=== PATIENT | female | born 1985 | race Caucasian/White ===

== ENCOUNTER 2020-01-31 11:28 | Outpatient (CLI) | payer OTHER, SELFPAY ==
--- NOTE | ~2020-01-31 | XR_ITS ---
XR hysterosalpingogram DATE: 01/31/2020 12:32 INDICATION: Infertility TECHNIQUE: Multiple spot images of the pelvis were obtained during hysterosalpingogram procedure perf ormed by Dr. Patrick Kang. 26.89 DAP 1.9 minutes fluoroscopy time COMPARISON: None FINDINGS: The uterine cavity appears normally shaped. The fallopian tubes are opacified and there is evidence of bilateral peritoneal spillage. IMPRESSION: Bilateral fallopian tube patency Reviewed, dictated and finalized at Location [facility]. Reviewed, dictated and finalized at location A.
== END 2020-01-31 11:29 | disposition home or self-care (01) ==
PROVIDERS: Visit Provider Obstetrics & Gynecology
DX: N97.9 Female infertility, unspecified (principal)
CPT/HCPCS: 58340; 74740; Q9966

== ENCOUNTER → 2020-11-12 11:41 | Outpatient (CLI) | payer OTHER, SELFPAY ==
--- NOTE | ~2020-11-12 | MMUS_ITS ---
EXAMINATION: MM diag angela implant LT w paty, US breast LT limited HISTORY: Left breast lump TECHNIQUE: ML, MLO and craniocaudal 3-D tomosynthesis images of the left breast were performed and sy nthetic 2-D images were generated. CAD analysis was submitted and interpreted. High resolution target ed 6:00 left breast 7 cm from nipple ultrasound examination was performed. COMPARISON: None BREAST PARENCHYMAL COMPOSITION: The breasts are almost entirely fatty. FINDINGS: MAMMOGRAPHIC FINDINGS: A deflated implant is noted. Posteriorly situated in the left breast. No suspicious mass or architectural distortion, malignant calcification, skin thickening or retractio n is detected. ULTRASOUND: Within the subcutaneous tissues of the left breast at the area of clinical complaint of lump at 6:00 7 cm from the nipple is a parallel circumscribed 2.5 x 0.34 x 1.7 cm hypoechoic lesion with tract to the skin surface, consistent with a large sebaceous cyst. IMPRESSION: 1. Benign findings; large subcutaneous sebaceous cyst at 6:00 7 cm from nipple at area of clinical co mplaint 2. No mammographic evidence of malignancy BI-RADS Category 2: Benign finding(s). Reviewed, dictated and finalized at location A. IMPRESSION: 1. Benign findings; large subcutaneous sebaceous cyst at 6:00 7 cm from nipple at area of clinical complaint 2. No mammographic evidence of malignancy BI-RADS Category 2: Benign finding(s).
== END ==
PROVIDERS: Visit Provider Obstetrics & Gynecology
DX: N60.02 Solitary cyst of left breast (principal)
CPT/HCPCS: 76642; 77061; 77065; G0279

== ENCOUNTER 2021-04-03 12:20 | Outpatient (CLI) | payer OTHER, SELFPAY ==
[2021-04-03 13:00] LABS: Basophils Absolute Auto 0.1 K/mm3 (0.0-0.1); Basophils Percent Auto 0.7 % (0.2-1.2); Eosinophils Absolute Auto 0.2 K/mm3 (0-0.3); Eosinophils Percent Auto 1.9 % (0-4.4); Hematocrit 50.3 % (37.0-47.0); Hemoglobin 16.7 g/dL (12.0-15.0); Immature Granulocyte Absolute 0.03 K/mm3 (0.00-0.031); Immature Granulocyte Percent A 0.3 % (0-0.5); Lymphocytes Absolute Auto 4.49 K/mm3 (0.9-3.2); Lymphocytes Percent Auto 37.9 % (18.3-44.2); Mean Corpuscular HGB Conc 33.2 g/dl (32-36); Mean Corpuscular Hemoglobin 29.6 pg (26-34); Mean Platelet Volume 10.8 fl (7.4-10.4); Monocytes Absolute Auto 0.7 K/mm3 (0.1-0.6); Monocytes Percent Auto 5.8 % (2.6-8.5); Neutrophils Absolute Auto 6.3 K/mm3 (1.3-6.7); Neutrophils Percent Auto 53.4 % (45.5-73.1); Platelet Count Result 413 k/mm3 (150-375); Red Blood Count 5.65 M/mm3 (4.2-5.4); Red Cell Distribution Width 13.5 % (11.5-14.5); White Blood Count 11.9 K/mm3 (4.5-10.0)
[2021-04-03 13:15] LABS: Alanine Aminotransferase 83 U/L (4-35); Albumin Level 5.6 g/dL (3.5-5.1); Alkaline Phosphatase 70 U/L (38-126); Anion Gap 13 mmol/L (8-16); Aspartate Amino Transferase 59 U/L (14-36); Bilirubin,Total 1.5 mg/dL (0.2-1.3); Blood Urea Nitrogen 13 mg/dL (7-17); Calcium 10.5 mg/dL (8.4-10.2); Carbon Dioxide 33 mmol/L (22-30); Chloride 96 mmol/L (98-107); Cholesterol 195 mg/dL (0-200); Estimated Glomerular Filt Rate > 60; Glucose 114 mg/dL (65-110); HDL Direct 38 mg/dL; Potassium 4.3 mmol/L (3.4-5.0); Sodium 142 mmol/L (137-145); Triglycerides 123 mg/dL (<150)
[2021-04-03 13:19] LABS: Hemoglobin A1C 7.8 % (<5.7)
[2021-04-03 13:27] LABS: LDL Cholesterol Direct 129 mg/dL
== END 2021-04-03 12:21 | disposition home or self-care (01) ==
DX: Z00.00 Encounter for general adult medical examination without abnormal findings (principal); R73.01 Impaired fasting glucose
CPT/HCPCS: 36415; 80053; 80061; 83036; 84443; 85025

== ENCOUNTER 2021-06-18 09:15 | Outpatient (CLI) | payer OTHER, SELFPAY ==
--- NOTE | ~2021-06-18 | US_ITS ---
EXAMINATION: US venous doppler [facility] EXAM DATE: 06/18/2021 10:39 INDICATION: M79.662 - Pain and swelling in left lower leg TECHNIQUE: Multiple grayscale, color flow and Doppler images of the left lower extremity deep venous system were obtained and reviewed. There is no prior study for comparison. FINDINGS: The left common femoral, femoral and profunda veins demonstrate normal color flow, respirat ory variation, augmentation and compressibility. Compressibility, color flow confirmed within the le ft popliteal, posterior tibial, peroneal, and greater saphenous veins. IMPRESSION: 1. No left lower extremity deep venous thrombosis. Reviewed, dictated and finalized at location A. L COUNSEL
== END 2021-06-18 09:16 | disposition home or self-care (01) ==
LOC: ANHIMG 09:20
PROVIDERS: Visit Provider Physician Assistant
DX: M79.662 Pain in left lower leg (principal)
CPT/HCPCS: 93971

== ENCOUNTER 2021-07-14 12:04 | Outpatient (CLI) | payer OTHER, SELFPAY ==
[2021-07-14 13:36] LABS: Hemoglobin A1C 5.6 % (<5.7)
== END 2021-07-14 12:05 | disposition home or self-care (01) ==
DX: E28.2 Polycystic ovarian syndrome (principal); Z31.41 Encounter for fertility testing
CPT/HCPCS: 36415; 83036; 83520

== ENCOUNTER 2021-08-13 12:10 | Outpatient (CLI) | payer OTHER, SELFPAY ==
[2021-08-16 06:14] LABS: Progesterone 13.5 ng/mL (***)
== END 2021-08-13 12:11 | disposition home or self-care (01) ==
DX: Z31.41 Encounter for fertility testing (principal)
CPT/HCPCS: 36415; 84144

== ENCOUNTER 2022-02-09 15:24 | Outpatient (CLI) | payer OTHER, SELFPAY ==
[2022-02-09 19:57] LABS: Anion Gap 12 mmol/L (8-16); Blood Urea Nitrogen 13 mg/dL (7-17); Calcium 9.4 mg/dL (8.4-10.2); Carbon Dioxide 30 mmol/L (22-30); Chloride 96 mmol/L (98-107); Estimated Glomerular Filt Rate > 60; Glucose 97 mg/dL (65-110); Magnesium 1.7 mg/dL (1.6-2.3); Potassium 3.7 mmol/L (3.4-5.0); Sodium 138 mmol/L (137-145)
== END 2022-02-09 15:25 | disposition home or self-care (01) ==
LOC: ANHGOSHLAB 15:26
PROVIDERS: Visit Provider Family Medicine
DX: R00.2 Palpitations (principal); I10 Essential (primary) hypertension
CPT/HCPCS: 36415; 80048; 83735

== ENCOUNTER 2022-02-18 08:25 | Outpatient (CLI) | payer OTHER, SELFPAY ==
--- NOTE | 2022-02-18 08:26 | ECHO_ITS ---
Patient Info Name: Anahi Wilson Age: 36 years : 1985 Gender: Female Ht: 65 in Wt: 230 lbs BSA: 2.24 m2 HR: 68 bpm BP: 127 / 97 mmHg Heart Rhythm: Sinus Rhythm Exam Date: 02/18/2022 9:20 AM Exam Location: [facility] Pulmonary Patient Status: Outpatient Admit Date: 02/18/2022 Staff Ordering Physician: Anahi Wilson DO Blade Aligner: Edis Maurer RDCS Attending Provider: Anahi Wilson DO Referring Physician: Katie HUTCHINSON; Exam Type: CA echo doppler color flow Study Info Indications R00.2 - Palpitations Complete two-dimensional, color flow and Doppler transthoracic echocardiogram is performed. Summary 1. Complete two-dimensional, color flow and Doppler transthoracic echocardiogram is performed. 2. Normal left ventricular size and thickness. Good contractility of all segments, ejection fraction 60-65%. Normal diastolic function. 3. No significant valve disease. 4. Unable to calculate right ventricular systolic pressure on this echo. 5. Normal sinus rhythm. Left Ventricle Left ventricular chamber dimension is normal. Left ventricular systolic function is normal, estimated at 60-65%. There is no increased left ventricular wall thickness. Left ventricular septal wall motion is normal. The left ventricular diastolic function is normal. Right Ventricle Right ventricular chamber dimension is normal. Right ventricular systolic function is normal. Left Atria Left atrial chamber dimension is normal. Right Atria Right atrial chamber dimension is normal. Aortic Valve The aortic valve is trileaflet. There is no aortic valve sclerosis. There is no aortic valve stenosis. There is no aortic valve regurgitation. Pulmonic Valve The pulmonic valve is normal. There is no pulmonic valve stenosis. There is no pulmonic regurgitation. Mitral Valve The mitral valve has normal leaflets. There is no mitral valve stenosis. There is no mitral valve regurgitation. Tricuspid Valve The tricuspid valve leaflets are normal. There is no significant tricuspid valve stenosis. There is trace tricuspid valve regurgitation. No pulmonary hypertension, estimated pulmonary arterial systolic pressure is Empty. Pericardium/Pleural The pericardium appears normal. There is no pericardial effusion. Inferior Vena Cava Not well visualized inferior vena cava with >50% collapse upon inspiration consistent with Empty right atrial pressure, Empty. Aorta The aortic root size at the sinus of Valsalva is normal. The prox ascending aorta size is normal. Left Ventricular Outflow Tract Name Value Normal LVOT 2D LVOT Diameter 2.0 cm LVOT Doppler LVOT Peak Gradient 6 mmHg LVOT Mean Gradient 4 mmHg LVOT VTI 23 cm LVOT VTI/AV VTI Ratio 0.9 LVOT Stroke Volume 75 ml LVOT CO 5.7 l/min LVOT CI 2.5 l/min/m2 Mitral Valve
== END 2022-02-18 08:26 | disposition home or self-care (01) ==
LOC: ANHCARD 08:26
PROVIDERS: Visit Provider Family Medicine
DX: R00.2 Palpitations (principal)
CPT/HCPCS: 93306

== ENCOUNTER 2022-04-27 12:21 | Outpatient (CLI) | payer OTHER, SELFPAY ==
--- NOTE | ~2022-04-27 | CT_ITS ---
EXAMINATION: CT abdomen pelvis w con INDICATION: Abdominal pain and diarrhea TECHNIQUE: Computed tomographic images of the abdomen and pelvis were obtained after the administrati on of 100 cc of Omnipaque 350 intravenous contrast. The dose-length product (DLP) was 1280.39 mGy-cm. Automated exposure control and iterative reconstruction technique were employed. COMPARISON: None available FINDINGS: Minimal dependent atelectasis is present in the lung bases. The heart size is normal. The l iver is diffusely low in attenuation when compared with the spleen, consistent with hepatic steatosis . There is focal fatty sparing near the gallbladder fossa. A stone is present in the nondistended gal lbladder. The spleen, pancreas, and adrenal glands are normal. The left kidney is unremarkable. There is a 6 mm cyst of the right kidney upper pole. There is mild periportal lymphadenopathy. Otherwise, no pathologically enlarged abdominal or pelvic lymph nodes are identified. The appendix is normal. Th ere is mild lumbar spondylosis. There is an approximately 3.9 x 3.1 cm cystic lesion of the right adn exa, probable cyst. IMPRESSION: 1. No CT correlate for the patient's symptoms. 2. 3.9 cm cystic lesion of the right adnexa, probable cyst. Recommend clinical correlation for right pelvic pain and consider further evaluation with pelvic ultrasound. 3. Diffuse hepatic steatosis. 4. Mild periportal lymphadenopathy, likely reactive. Reviewed, dictated and finalized at location B. K REPAIR LABORER IMPRESSION: 1. No CT correlate for the patient's symptoms. 2. 3.9 cm cystic lesion of the right adnexa, probable cyst. Recommend clinical correlation for right pelvic pain and consider further evaluation with pelvic u ltrasound. 3. Diffuse hepatic steatosis. 4. Mild periportal lymphadenopathy, likely reactive.
[2022-04-27 12:50] LABS: Estimated Glomerular Filt Rate > 60
== END 2022-04-27 12:22 | disposition home or self-care (01) ==
PROVIDERS: Visit Provider Family Medicine
DX: R10.84 Generalized abdominal pain (principal); R19.7 Diarrhea, unspecified; K76.0 Fatty (change of) liver, not elsewhere classified
CPT/HCPCS: 74177; Q9967

== ENCOUNTER 2022-07-17 10:56 | Outpatient (CLI) | payer OTHER, SELFPAY ==
[2022-07-21 18:30] LABS: H pylori, Urea Breath DETECTED (NOT DETECTED)
== END 2022-07-17 10:57 | disposition home or self-care (01) ==
LOC: ANHGOSHLAB 10:58
PROVIDERS: Visit Provider Nurse Practitioner Family
DX: K21.9 Gastro-esophageal reflux disease without esophagitis (principal); R10.9 Unspecified abdominal pain; R19.7 Diarrhea, unspecified
CPT/HCPCS: 83013

== ENCOUNTER → 2022-08-21 09:29 | Outpatient (CLI) | payer OTHER, SELFPAY ==
--- NOTE | ~2022-08-21 | US_ITS ---
EXAMINATION: US right upper quadrant DATE: 08/21/2022 09:46 INDICATION: Right upper quadrant abdominal pain. TECHNIQUE: Multiple grayscale and Doppler ultrasound images of the abdomen were obtained. COMPARISON: CT abdomen and pelvis 04/27/2022 FINDINGS: The visualized portion of the head of the pancreas is normal. There is diffuse hepatic stea tosis with focal sparing in the gallbladder fossa. There is normal flow in main portal vein. The gall bladder is normal in size and contains a gallstone. No gallbladder wall thickening. There was a posit haider sonographic Massey sign. The common duct is normal and measures 4 mm. IMPRESSION: 1. Gallstone and positive sonographic Massey sign, but no gallbladder distention or gallbladder wall thickening to suggest acute cholecystitis. 2. Diffuse hepatic steatosis. Reviewed, dictated and finalized at location A. E INSERTER IMPRESSION: 1. Gallstone and positive sonographic Massey sign, but no gallbladder distentio n or gallbladder wall thickening to suggest acute cholecystitis. 2. Diffuse hepatic steatosis.
== END ==
PROVIDERS: PCP Family Medicine; Visit Provider Family Medicine
DX: R10.11 Right upper quadrant pain (principal); K76.0 Fatty (change of) liver, not elsewhere classified; K80.20 Calculus of gallbladder without cholecystitis without obstruction
CPT/HCPCS: 76705

== ENCOUNTER → 2023-01-05 08:46 | Outpatient (CLI) | payer OTHER, SELFPAY ==
--- NOTE | ~2023-01-05 | US_ITS ---
Limited Abdominal Sonogram: Real-time sonographic imaging of the right upper quadrant was performed. Clinical History: Right upper quadrant pain Findings: The liver appears mildly echogenic, with no evidence of mass lesion or bile duct dilatatio n. Main portal vein demonstrates normal direction of flow. The gallbladder is well distended, and con tains an echogenic, 2.3 cm shadowing gallstone. No gallbladder wall thickening. The common bile duct measures 5 mm. The visualized pancreas, aorta, and IVC are unremarkable. Impression: Cholelithiasis. Diffuse fatty infiltration of liver. Reviewed, dictated and finalized at location . Impression: Cholelithiasis. Diffuse fatty infiltration of liver.
== END ==
PROVIDERS: PCP Family Medicine; Visit Provider Family Medicine
DX: R10.11 Right upper quadrant pain (principal); K80.20 Calculus of gallbladder without cholecystitis without obstruction; K76.0 Fatty (change of) liver, not elsewhere classified
CPT/HCPCS: 76705

== ENCOUNTER 2023-02-12 08:18 | Outpatient (CLI) | payer OTHER, SELFPAY ==
[2023-02-12 17:08] LABS: Hematocrit 47.8 % (37.0-47.0); Hemoglobin 15.1 g/dL (12.0-15.0); Mean Corpuscular HGB Conc 31.6 g/dl (32-36); Mean Corpuscular Hemoglobin 27.6 pg (26-34); Mean Corpuscular Volume 87.2 fl (80-100); Mean Platelet Volume 11.4 fl (7.4-10.4); Platelet Count Result 312 k/mm3 (150-375); Red Blood Count 5.48 M/mm3 (4.2-5.4); Red Cell Distribution Width 13.3 % (11.5-14.5); White Blood Count 10.6 K/mm3 (4.5-10.0)
[2023-02-12 17:20] LABS: Alanine Aminotransferase 77 U/L (6-35); Albumin Level 4.4 g/dL (3.5-5.1); Alkaline Phosphatase 66 U/L (38-126); Anion Gap 9 mmol/L (8-16); Aspartate Amino Transferase 57 U/L (14-36); Bilirubin,Total 0.8 mg/dL (0.2-1.3); Blood Urea Nitrogen 14 mg/dL (7-17); Calcium 9.3 mg/dL (8.4-10.2); Carbon Dioxide 31 mmol/L (22-30); Chloride 99 mmol/L (98-107); Cholesterol 209 mg/dL (0-200); Estimated Glomerular Filt Rate > 60; Glucose 113 mg/dL (65-110); HDL Direct 34 mg/dL; Potassium 4.1 mmol/L (3.4-5.0); Sodium 139 mmol/L (137-145); Triglycerides 186 mg/dL (<150)
[2023-02-12 17:31] LABS: LDL Cholesterol Direct 129 mg/dL
[2023-02-12 17:39] LABS: Hemoglobin A1C 5.8 % (<5.7)
[2023-02-16 14:00] LABS: Vitamin D 1,25 (OH)2 Total 33 pg/mL (18-72); Vitamin D2 1,25 (OH)2 <8 pg/mL; Vitamin D3 1,25 (OH)2 33 pg/mL
== END 2023-02-12 08:19 | disposition home or self-care (01) ==
LOC: ANHGOSHLAB 08:20
PROVIDERS: PCP Family Medicine; Visit Provider Internal Medicine Gastroenterology
DX: E55.9 Vitamin D deficiency, unspecified (principal); E66.9 Obesity, unspecified; I10 Essential (primary) hypertension; R73.03 Prediabetes; R74.8 Abnormal levels of other serum enzymes; Z79.899 Other long term (current) drug therapy; R10.11 Right upper quadrant pain
CPT/HCPCS: 36415; 80053; 80061; 82652; 83036; 84443; 85027

== ENCOUNTER 2023-03-18 08:55 | Outpatient (CLI) | payer OTHER, SELFPAY ==
[2023-03-18 10:27] LABS: Alanine Aminotransferase 78 U/L (6-35); Albumin Level 4.4 g/dL (3.5-5.1); Alkaline Phosphatase 62 U/L (38-126); Amylase 99 U/L (30-110); Aspartate Amino Transferase 66 U/L (14-36); Bilirubin,Total 1.1 mg/dL (0.2-1.3); Lipase 281 U/L (23-300)
== END 2023-03-18 08:56 | disposition home or self-care (01) ==
LOC: ANHGOSHLAB 08:57
PROVIDERS: Visit Provider Surgery
DX: K80.20 Calculus of gallbladder without cholecystitis without obstruction (principal)
CPT/HCPCS: 36415; 80076; 82150; 83690; 86850; 86900; 86901

== ENCOUNTER 2023-03-24 01:13 | Day surgery (SDC) | payer OTHER, SELFPAY ==
[2023-03-15 16:55] VITALS: BMI 41.1
--- NOTE | 2023-03-15 16:56 | PC.NURSE ---
Report to the Outpatient Waiting Room, entrance under the green pavilion located off [facility], at time _1000_ on date _[id number]_. Planned Procedure Time: _1200_. Time changes happen often and if your time is changed the preop area will call you the afternoon before. - You and your visitor will be asked to self-screen and do not enter if you have any COVID symptoms. - A mask is optional within the hospital at this time. Patients may have clear liquids (water, carbonated beverages, clear teas, apple juice) until 3 hours prior to surgery with a maximum of 20 ounces. - No food from midnight until time of surgery Take the following medications with a SIP of water the morning of surgery: ____None DO NOT STOP ANY OF YOUR OTHER PRESCRIPTION MEDICATIONS PRIOR TO SURGERY ?EXCEPT THE FOLLOWING Medications to discontinue per physician ____None Date to take last dose Please no make-up, nail hungarian, hairspray, perfume, deodorant, or body powder the day of surgery. No jewelry (including any body piercings) or valuables the day of surgery, leave them at home. Please take a shower or bath the morning of, surgery with Hebiclense an antibacterial soap. Wear comfortable, loose fitting clothing. - Jewelry must be removed prior to entering the operating room. Rings and piercings that are not removed may be cut off. - The hospital will not accept responsibility for valuables. - Please leave all valuables, including medications, at home the day of surgery. If you are going home after surgery, a licensed rolloff driver must drive you home. - NO public transportation without another adult if you receive anesthesia. - We recommend that an adult stay with you for 24 hours following discharge. - We also recommend that you do not drive, make important decision, drink alcoholic beverages, or take any drugs that were not prescribed by your health care provider for at least 24 hours after your discharge time. Follow any additional instructions given to you from your surgeon. If you or anyone in your household have experienced Covid symptoms in the past week, please notify your surgeon or the nurse liaison at the phone number below for possible testing. Telephone instructions given to _Patient__and asked if any additional questions and then verbalized understanding. Patient advised to call surgeon office or pre surgery nurse liaison [phone] if any additional questions.
[2023-03-24] VITALS (9 sets, daily range): BP systolic 98–152; BP diastolic 60–94; PULSE 80–94; RESP 12–22; TEMP 36.1–36.5; O2SAT 95–99
[2023-03-24] MEDS: LACTATED RINGERS 1,000 ML 30 ML IV CONT ×2 (10:45→13:20)
[2023-03-24] MEDS: ACETAMINOPHEN 500 MG TABLET 1000 MG PO (10:45)
[2023-03-24] MEDS: KETOROLAC 15 MG/ML VIAL (*BKC) IV PUSH (10:45)
[2023-03-24 10:56] LABS: Glucose Point of Care 133 mg/dl (65-105)
--- NOTE | 2023-03-24 11:28 | WPDANESEPPF ---
Anes - Initial Pre Proc Eval Procedure: Operation Date: 03/24/23 12:00 Proposed Procedures p Laparoscopic Cholecystectomy - Guadalupe Joya MD Date/Time: 03/24/23 11:28 Surgeon: Guadalupe Joya MD Pre Op Diagnosis: chronic cholecystitis with stones Patient Data Age: 37 Gender: F Height: 1.66 m Weight: 117.2 kg Last Vital Signs Temp 97.0 F L 03/24/23 10:14 Pulse 94 03/24/23 10:14 Resp 18 03/24/23 10:14 BP 141/91 H 03/24/23 10:14 Pulse Ox 98 03/24/23 10:14 O2 Del Method Room Air 03/24/23 10:14 Allergies Allergy/AdvReac Type Severity Reaction Status Date / Time cephalexin [From Keflex] Allergy Mild Hives Verified 03/24/23 10:19 sulfamethoxazole Allergy Mild Rash Verified 03/24/23 10:19 [From Bactrim] trimethoprim [From Bactrim] Allergy Mild Rash Verified 03/24/23 10:19 ciprofloxacin [From Cipro] AdvReac Intermediate Other Verified 03/24/23 10:19 Home Medications Medication Instructions Recorded Confirmed Type hydrochlorothiazide 25 mg tablet 25 mg PO DAILY #30 tabs 10/27/22 03/24/23 Rx clindamycin phosphate 1 % topical 1 applic topical BID #60 grams 01/04/23 03/24/23 Rx gel metformin 500 mg tablet,extended 1,000 mg PO BID #120 tabs 01/18/23 03/24/23 Rx release 24hr omeprazole 20 mg capsule,delayed 20 mg PO BID 03/15/23 03/24/23 History release alprazolam 0.25 mg tablet 0.25 mg PO BID PRN anxiety #4 tabs 03/17/23 03/24/23 Rx ketorolac 10 mg tablet 10 mg PO Q6H PRN pain 7 days #28 03/22/23 03/24/23 Rx tabs hydrocodone 5 mg-acetaminophen 325 1 tablet PO PRN PRN Pain 03/24/23 03/24/23 History mg tablet metoprolol succinate 100 mg 175 mg PO HS 03/24/23 03/24/23 History tablet,extended release 24 hr Laboratory Tests 03/24/23 10:53 POC Capillary Glucose 133 H mg/dl (65-105) Patient hx anesthesia problems: none Family hx anesthesia problems: none Results Review: All pre-operative results and documents have been reviewed as part of the pre-operative evaluation. COUNTS INCLUDE 234 BEDS AT THE [facility] Past Medical History Medical History Cholelithiasis Elevated liver enzymes Helicobacter pylori (H. pylori) infection Social History Social History Smoking status: Never smoker Alcohol intake: never Substance use: never Substance use type: does not use Living arrangements: with family Spiritual care concerns: No Anes - Eval Final PreProcedure Day of Procedure 03/24/23 11:28 Patient weight: morbidly obese Heart: regular rate and rhythm Lungs: clear to auscultation Airway: Mallampati scale class II Neurological: alert and oriented Last oral intake: >/= 8 hours ASA classification: III Emergent: no Anesthetic plan: proceed Anesthesia type and monitoring: general ETT and standard monitoring Results Review: All pre-operative results and documents have been reviewed as part of the pre-operative evaluation. Informed Consent: The patient's anesthetic plan and its attendant risks and benefits were discussed with the patient/family/POA. Questions were solicited and answers provided to the satisfaction of the patient/family/POA.
[2023-03-24] MEDS: CLINDAMYCIN 900 MG/D5W 50 ML 900 MG/50 ML PIGGYBACK 50 MG IVPB (11:47)
--- NOTE | 2023-03-24 11:48 | PM.IMHP ---
H&P: HPI History of Present Illness Date/Time: 03/24/23 11:48 Chief Complaint: cholecystitis, cholelithiasis Narrative: Anahi is a 37 y/o female who presents to the office for evaluation of her gallbladder. She reports that her symptoms include RUQ tenderness and acid reflux but denies any diarrhea or bloating. She was also diagnosed with H Pylori recently and saw GI yesterday that have recommended treatment for this. She had abdomen US that showed chronic cholecystitis, cholelithiasis. Review of Systems Review of Systems: All systems reviewed & are unremarkable except as noted in HPI and below PMFSH Past Medical History Medical History Cholelithiasis Elevated liver enzymes Helicobacter pylori (H. pylori) infection Social History Social History Smoking status: Never smoker Alcohol intake: never Substance use: never Substance use type: does not use Living arrangements: with family Spiritual care concerns: No Meds Home Medications and Allergies Home Medications Medication Instructions Recorded Confirmed Type hydrochlorothiazide 25 mg tablet 25 mg PO DAILY #30 tabs 10/27/22 03/24/23 Rx clindamycin phosphate 1 % topical 1 applic topical BID #60 grams 01/04/23 03/24/23 Rx gel metformin 500 mg tablet,extended 1,000 mg PO BID #120 tabs 01/18/23 03/24/23 Rx release 24hr omeprazole 20 mg capsule,delayed 20 mg PO BID 03/15/23 03/24/23 History release alprazolam 0.25 mg tablet 0.25 mg PO BID PRN anxiety #4 tabs 03/17/23 03/24/23 Rx ketorolac 10 mg tablet 10 mg PO Q6H PRN pain 7 days #28 03/22/23 03/24/23 Rx tabs hydrocodone 5 mg-acetaminophen 325 1 tablet PO PRN PRN Pain 03/24/23 03/24/23 History mg tablet metoprolol succinate 100 mg 175 mg PO HS 03/24/23 03/24/23 History tablet,extended release 24 hr Allergies Allergy/AdvReac Type Severity Reaction Status Date / Time cephalexin [From Keflex] Allergy Mild Hives Verified 03/24/23 10:19 sulfamethoxazole Allergy Mild Rash Verified 03/24/23 10:19 [From Bactrim] trimethoprim [From Bactrim] Allergy Mild Rash Verified 03/24/23 10:19 ciprofloxacin [From Cipro] AdvReac Intermediate Other Verified 03/24/23 10:19 Vital Signs Vital Signs - 24 hr 03/24/23 10:14 Temperature 36.1 C L Pulse Rate 94 Respiratory Rate 18 Blood Pressure 141/91 H Pulse Oximetry 98 Oxygen Delivery Room Air Exam Const: General: cooperative, comfortable and no acute distress Resp: Auscultation: clear to auscultation bilaterally Cardio: Rate: regular rate Rhythm: regular rhythm GI: Inspection: normal to inspection and obesity GI Palp: Yes abdominal tenderness, Yes Soft to palpation, Yes Tenderness to palpation present (GI), No Guarding due to palpation present (GI) and No Rigid due to palpation Assessment and Plan Assessment and plan (1) Chronic cholecystitis with calculus: Code(s): K80.10 - Calculus of gallbladder with chronic cholecystitis without obstruction Status: Acute Assessment and Plan: will setup for cholecystectomy
--- NOTE | 2023-03-24 11:51 | WPDHPUPDATE1 ---
History and Physical Update Update Date/Time: 03/24/23 11:51 History and Physical has been reviewed, including an updated exam of the patient. There are NO changes in the patient's condition. Risks, benefits, and alternatives have been discussed and questions answered. Patient agrees to proceed with procedure.
[2023-03-24] MEDS: BUPIVACAINE/EPINEPHRINE 0.5% 50 ML VIAL 30 ML INFILTRATE (12:07)
--- NOTE | 2023-03-24 13:12 | W.PM.PROC2 ---
Procedure Note - Detailed Date of Procedure 03/24/23 Pre-op Diagnosis chronic cholecystitis with cholelithiasis Post-op Diagnosis Same Procedure Performed Laparoscopic cholecystectomy Surgeon Guadalupe Joya MD Anesthesia General Indications 37-year-old female presented to the office complaining of postprandial right upper quadrant abdominal pain associated with nausea and vomiting. Workup including imaging significant for cholecystitis, cholelithiasis. Findings Cholecystitis with cholelithiasis Description of Procedure The patient was taken to the operating room placed in the supine position. After adequate induction of general anesthesia, the patient was prepped and draped in normal sterile fashion. A time-out was then performed to verify the patient's identity as well as the procedure being performed. I then made a 5 mm incision in the infraumbilical region. Through this, a Veress needle was placed into the peritoneal cavity and CO2 gas was then insufflated. After adequate pneumoperitoneum was achieved, the Veress needle was removed and a 5 mm optiview trocar was placed through this incision under direct visualization. I then placed the laparoscope through this trocar site and under direct visualization placed a further 12 mm subxiphoid port as well as 2 additional 5 mm ports in the right upper abdomen. The gallbladder was then identified and was noted to be moderately inflamed, distended, and full of gallstones. Of note, the liver was noted to have changes consistent with hepatic steatosis, Muñiz. I was able to place a grasper at the dome of the gallbladder and this was retracted anterior and cephalad up over the liver. A 2nd retractor was then placed at the infundibulum and retracted laterally, this allowed visualization of the triangle of Calot. I then was able to visualize the cystic duct in its entirety from its proximal insertion into the gallbladder, to its distal junction with the common hepatic/common bile duct junction. At this point, I carefully skeletonized the proximal cystic duct with the [place] dissector. I then clipped and transected the proximal cystic duct. Next I visualized the cystic artery. Again the artery was skeletonized, clipped, and transected. I then used the Bovie cautery to take down the peritoneal attachments of the gallbladder off the liver bed. Once the gallbladder specimen was completely detached, an endo-pouch was placed through the 12 mm port site. I then placed the gallbladder specimen into the Endo pouch and removed the endo-pouch from the 12 mm port site. Of note, I did have to slightly enlarge the incision to allow extraction of the gallbladder. The specimen will now be sent to pathology for further review. I then copiously irrigated the right upper quadrant. Hemostasis was noted in the liver bed, the clips were noted to be in good position on both the cystic duct stump and the cystic artery stump. No other pathology was noted in the right upper quadrant. I then moved the laparoscope to the subxiphoid port. No iatrogenic injury or other pathology was noted in the lower abdomen. I then closed the 12 mm trocar site under direct visualization using the Uriel cone and 0 Vicryl suture. At this point, the abdomen was desufflated and all ports removed. All port sites were then closed with 4.O Monocryl subcuticular sutures. Dermabond was placed on each incision. The patient tolerated the procedure well, was extubated in the operating room postoperative and will be transferred to the recovery room in stable condition Estimated Blood Loss 5 Drains No Packing No Pathology Yes Complications No immediate complications Condition Stable Disposition PACU [facility] Billing Surgery - Charge Forward: Surgery Billing
[2023-03-24 13:30] LABS: Glucose Point of Care 115 mg/dl (65-105)
[2023-03-24] MEDS: ONDANSETRON INJ 4 MG/2 ML VIAL IV PUSH (13:54)
[2023-03-24] MEDS: diphenhydrAMINE HCl INJ 50 MG/ML VIAL 25 MG IV PUSH (15:11)
[2023-03-24] MEDS: SCOPOLAMINE 1.5 MG PATCH TRANSDERM (15:11)
== END 2023-03-24 15:40 | disposition home or self-care (01) ==
PROVIDERS: Visit Provider Surgery
PROC: 0FT44ZZ Resection of Gallbladder, Percutaneous Endoscopic Approach (ICD-10-PCS; CPT 47562; principal; 2023-03-24 12:00)
DX: K80.10 Calculus of gallbladder with chronic cholecystitis without obstruction (principal); Z79.84 Long term (current) use of oral hypoglycemic drugs; E66.01 Morbid (severe) obesity due to excess calories; Z68.41 Body mass index [BMI] 40.0-44.9, adult
CPT/HCPCS: 47562; 82948; 88304; A9270; J1100; J1200; J1885; J2250; J2405; J2704; J3010; J7030; J7120

== ENCOUNTER → 2023-04-13 10:40 | Outpatient (CLI) | payer OTHER, SELFPAY ==
--- NOTE | ~2023-04-13 | US_ITS ---
US right upper quadrant INDICATION: Right upper quadrant pain and nausea PROCEDURE: Realtime right upper abdominal ultrasound. COMPARISON: No prior studies for comparison. FINDINGS: The pancreas is normal without focal mass or pancreatic ductal dilation. Echotexture, cons istent with fatty infiltration. Liver is enlarged. There is normal directional flow in the portal ve in. Gallbladder is surgically absent. Common bile duct measures 8 mm. No sonographic Massey's sign. IMPRESSION: 1: Hepatic steatosis. Hepatomegaly. 2: Status post cholecystectomy with expected prominence of the bile ducts. Reviewed, dictated and finalized at location L.
== END ==
PROVIDERS: PCP Family Medicine; Visit Provider Family Medicine
DX: R10.11 Right upper quadrant pain (principal); Z90.49 Acquired absence of other specified parts of digestive tract; K76.0 Fatty (change of) liver, not elsewhere classified
CPT/HCPCS: 76705

== ENCOUNTER 2023-11-10 09:14 | Outpatient (CLI) | payer OTHER, SELFPAY ==
[2023-11-10 10:21] LABS: Hematocrit 51.1 % (37.0-47.0); Hemoglobin 16.4 g/dL (12.0-15.0); Mean Corpuscular HGB Conc 32.1 g/dl (32-36); Mean Corpuscular Hemoglobin 27.4 pg (26-34); Mean Corpuscular Volume 85.3 fl (80-100); Mean Platelet Volume 11.5 fl (7.4-10.4); Platelet Count Result 423 k/mm3 (150-375); Red Blood Count 5.99 M/mm3 (4.2-5.4); Red Cell Distribution Width 14.1 % (11.5-14.5); White Blood Count 11.2 K/mm3 (4.5-10.0)
[2023-11-10 10:37] LABS: Alanine Aminotransferase 52 U/L (6-35); Alkaline Phosphatase 73 U/L (38-126); Anion Gap 8 mmol/L (4-12); Aspartate Amino Transferase 38 U/L (14-36); Bilirubin,Total 1.2 mg/dL (0.2-1.3); Blood Urea Nitrogen 14 mg/dL (7-17); Calcium 9.8 mg/dL (8.4-10.2); Carbon Dioxide 31 mmol/L (22-30); Chloride 100 mmol/L (98-107); Cholesterol 148 mg/dL (0-200); Estimated Glomerular Filt Rate > 60; Glucose 97 mg/dL (65-110); HDL Direct 34 mg/dL; Potassium 3.6 mmol/L (3.4-5.0); Sodium 139 mmol/L (137-145); Triglycerides 122 mg/dL (<150)
[2023-11-10 10:48] LABS: LDL Cholesterol Direct 93 mg/dL
[2023-11-10 11:05] LABS: Hemoglobin A1C 5.8 % (<5.7)
== END 2023-11-10 09:15 | disposition home or self-care (01) ==
LOC: ANHLAB 09:16
PROVIDERS: PCP Family Medicine; Visit Provider Family Medicine
DX: E78.5 Hyperlipidemia, unspecified (principal); E11.9 Type 2 diabetes mellitus without complications; Z82.49 Family history of ischemic heart disease and other diseases of the circulatory system; I10 Essential (primary) hypertension; E55.9 Vitamin D deficiency, unspecified
CPT/HCPCS: 36415; 80053; 80061; 83036; 84443; 85027

== ENCOUNTER 2024-03-21 12:13 | Outpatient (CLI) | payer OTHER, SELFPAY ==
[2024-03-21 12:58] LABS: Basophils Absolute Auto 0.1 K/mm3 (0.0-0.1); Basophils Percent Auto 0.5 % (0.2-1.2); Eosinophils Absolute Auto 0.2 K/mm3 (0-0.3); Eosinophils Percent Auto 1.4 % (0-4.4); Hemoglobin 15.2 g/dL (12.0-15.0); Immature Granulocyte Absolute 0.04 K/mm3 (0.00-0.031); Immature Granulocyte Percent A 0.3 % (0-0.5); Lymphocytes Absolute Auto 3.24 K/mm3 (0.9-3.2); Lymphocytes Percent Auto 25.6 % (18.3-44.2); Mean Corpuscular HGB Conc 33.8 g/dl (32-36); Mean Corpuscular Hemoglobin 29.2 pg (26-34); Mean Corpuscular Volume 86.4 fl (80-100); Mean Platelet Volume 10.6 fl (7.4-10.4); Monocytes Absolute Auto 0.9 K/mm3 (0.1-0.6); Neutrophils Absolute Auto 8.3 K/mm3 (1.3-6.7); Neutrophils Percent Auto 65.2 % (45.5-73.1); Platelet Count Result 425 k/mm3 (150-375); Red Blood Count 5.21 M/mm3 (4.2-5.4); Red Cell Distribution Width 14.7 % (11.5-14.5); White Blood Count 12.7 K/mm3 (4.5-10.0)
[2024-03-21 13:07] LABS: Hemoglobin A1C 5.3 % (<5.7)
[2024-03-21 13:09] LABS: Alanine Aminotransferase 32 U/L (6-35); Albumin Level 4.5 g/dL (3.5-5.1); Alkaline Phosphatase 69 U/L (38-126); Anion Gap 8 mmol/L (4-12); Aspartate Amino Transferase 29 U/L (14-36); Bilirubin,Total 1.2 mg/dL (0.2-1.3); Blood Urea Nitrogen 15 mg/dL (7-17); Calcium 9.5 mg/dL (8.4-10.2); Carbon Dioxide 30 mmol/L (22-30); Chloride 98 mmol/L (98-107); Cholesterol 144 mg/dL (0-200); Estimated Glomerular Filt Rate > 60; Glucose 80 mg/dL (65-110); HDL Direct 33 mg/dL; Potassium 3.7 mmol/L (3.4-5.0); Sodium 136 mmol/L (137-145); Triglycerides 97 mg/dL (<150)
[2024-03-21 13:20] LABS: LDL Cholesterol Direct 82 mg/dL
[2024-03-29 17:38] LABS: Vitamin D 1,25 (OH)2 Total 40 pg/mL (18-72); Vitamin D2 1,25 (OH)2 <8 pg/mL; Vitamin D3 1,25 (OH)2 40 pg/mL
== END 2024-03-21 12:14 | disposition home or self-care (01) ==
PROVIDERS: PCP Family Medicine; Visit Provider Family Medicine
DX: E78.5 Hyperlipidemia, unspecified (principal); E55.9 Vitamin D deficiency, unspecified; E66.9 Obesity, unspecified; I10 Essential (primary) hypertension; R73.03 Prediabetes; R74.8 Abnormal levels of other serum enzymes; Z79.899 Other long term (current) drug therapy
CPT/HCPCS: 36415; 80053; 80061; 82652; 83036; 84443; 85025

== ENCOUNTER 2024-04-07 23:01 | Emergency (ER) | payer OTHER, SELFPAY ==
--- NOTE | ~2024-04-07 | CT_ITS ---
EXAMINATION: CT cervical spine w con DATE: 04/08/2024 00:53 INDICATION: New onset of tingling in the lower extremity. History of multiple sclerosis. TECHNIQUE: Computed tomography (CT) of the cervical spine was performed with 200 cc of MultiHance adm inistered intravenously. intravenous contrast. The dose-length product was mGy-cm. COMPARISON: None FINDINGS: Straightening of cervical lordosis. Vertebral body heights are maintained. Mild disc narrow ing at C5-6. No evidence for perched facet. Odontoid process is normal. No paraspinal soft tissue abn ormality. Lung apices are normal. No significant spinal stenosis. If there is concern for demyelinati ng disease, further evaluation with MRI is recommended. No abnormal enhancement is seen. There is mil d levocurvature of the cervical spine. Mild multilevel uncinate hypertrophy. IMPRESSION: 1. No acute abnormality of the cervical spine. Reviewed, dictated and finalized at location B.
--- NOTE | ~2024-04-07 | CT_ITS ---
EXAMINATION: CT thoracic lumbar w con DATE: 04/08/2024 00:53 INDICATION: History of MS. Onset of tingling in the lower extremities. TECHNIQUE: Computed tomography (CT) of the thoracic and lumbar was performed without intravenous cont rast. The dose-length product was 1946.52 mGy-cm. Automated exposure control and iterative reconstruc tion technique were employed. COMPARISON: None FINDINGS: Thoracic spine: There is dependent atelectasis. There is mild lower thoracic spondylosis. Vertebral b matt heights are maintained. Normal thoracic alignment. No significant spinal stenosis. No fracture or traumatic malalignment. Lumbar spine: Normal lumbar alignment. No fracture, subluxation or dislocation. Mild levocurvature of the lumbar sp ine. IMPRESSION: 1. No acute abnormality of the thoracic or lumbar spine. Reviewed, dictated and finalized at location B.
[2024-04-07 23:08] VITALS: BP 119/80; PULSE 97; RESP 14; TEMP 36.8; O2SAT 100
--- NOTE | 2024-04-07 23:36 | ECG_ITS ---
Test Date: 2024-04-07 23:33:02 Measurements Intervals [place] Rate: 87 P: 28 NE: 180 QRS: 28 QRSD: 109 T: 36 QT: 365 QTc: 441 Interpretive Statements SINUS RHYTHM NORMAL ELECTROCARDIOGRAM No previous ECG available for comparison Electronically Signed On 04-08-2024 09:49:49 CDT by Yves Mercedes M.D.
--- NOTE | 2024-04-08 00:01 | ED.GENADULT ---
HPI - General Adult General Chief complaint: Unspecified Stated complaint: When I tilt my head down; bottom half goes numb Time Seen by Provider: 04/07/24 23:17 History of Present Illness HPI narrative: Patient is a 38-year-old female who presents to the ER with some numbness and tingling in her bilateral hips and lower extremities. She reports she has history of MS, but has not had a flare up in many years. Patient reports in 2019 she had a MRI that indicated she had a new lesion, but patient's main symptoms have been related to optic neuritis. She reports she slept weird approximately 1 week ago and woke up with some neck discomfort. Patient reports she started experiencing more neck pain 3 days ago and today she noted when she flexed her head forward her bilateral lower extremities felt like ?buzzing bees from my hips all the way down my legs. She reports she was prescribed a Medrol Dosepak today but has not started it yet. Patient denies chest pain, shortness of breath, incontinence, one-sided numbness/tingling/weakness. Related Data Allergies Allergy/AdvReac Type Severity Reaction Status Date / Time cephalexin [From Keflex] Allergy Hives Verified 04/07/24 23:15 ciprofloxacin AdvReac Diarrhea Verified 04/07/24 23:15 sulfamethoxazole AdvReac Itching Verified 04/07/24 23:15 [From Bactrim] trimethoprim [From Bactrim] AdvReac Itching Verified 04/07/24 23:15 Review of Systems Review of Systems: All systems reviewed & are unremarkable except as noted in HPI and below Exam Narrative: GENERAL: Well appearing, well-nourished, non-toxic, in no acute distress. HEAD: Normocephalic, atraumatic. NECK: Supple. No adenopathy, no masses. RESPIRATORY: Airway patent, respirations nonlabored. Clear to auscultation bilaterally, no rales, rhonchi, wheezing. CARDIOVASCULAR: Regular rate and rhythm without murmurs, rubs, or gallops. Peripheral pulses 2+ and equal bilaterally. ABDOMINAL: Soft, nontender, nondistended, no hepatosplenomegaly. Normoactive BS. MUSCULOSKELETAL: Moves all extremities. Strength/ROM intact without gross deformities. SKIN: Warm, dry, normal color. No rashes. NEURO: A&O X3. Speech clear. Cranial nerves II-XII grossly intact. No ataxic movements. PSYCHIATRIC: Appropriate mood and affect. Normal interaction. Course Vital Signs Vital signs: Vital Signs Temperature 36.8 C 04/07/24 23:08 Pulse Rate 97 04/07/24 23:08 Respiratory Rate 14 04/07/24 23:08 Blood Pressure 119/80 04/07/24 23:08 Pulse Oximetry 100 04/07/24 23:08 Oxygen Delivery Room Air 04/07/24 23:08 Temperature 36.8 C 04/07/24 23:08 Pulse Rate 87 04/08/24 00:17 Respiratory Rate 20 04/08/24 00:17 Blood Pressure 113/83 04/08/24 00:17 Pulse Oximetry 100 04/08/24 00:17 Oxygen Delivery Room Air 04/07/24 23:08 Medical Decision Making MDM Narrative Medical decision making narrative: Patient is a 38-year-old female who presents to the ER with some numbness and tingling in her bilateral hips and lower extremities. She reports she has history of MS, but has not had a flare up in many years. Patient reports in 2019 she had a MRI that indicated she had a new lesion, but patient's main symptoms have been related to optic neuritis. She reports she slept weird approximately 1 week ago and woke up with some neck discomfort. Patient reports she started experiencing more neck pain 3 days ago and today she noted when she flexed her head forward her bilateral lower extremities felt like ?buzzing bees from my hips all the way down my legs. She reports she was prescribed a Medrol Dosepak today but has not started it yet. Patient denies chest pain, shortness of breath, incontinence, one-sided numbness/tingling/weakness. Patient's physical examination is unremarkable. Her neuro examination was unremarkable and all cranial nerves intact. Patient's CBC indicated white blood cell count of 11.1, but patient
[2024-04-08] MEDS: methylPREDNISolone SOD SUCC 125 MG VIAL IV PUSH (00:07)
[2024-04-08] MEDS: SODIUM CHLORIDE 0.9% IV 1,000 ML 999 ML IV CONT (00:07)
[2024-04-08 00:12] LABS: Basophils Absolute Auto 0.1 K/mm3 (0.0-0.1); Basophils Percent Auto 0.6 % (0.2-1.2); Eosinophils Absolute Auto 0.2 K/mm3 (0-0.3); Eosinophils Percent Auto 1.7 % (0-4.4); Hematocrit 43.7 % (37.0-47.0); Hemoglobin 14.7 g/dL (12.0-15.0); Immature Granulocyte Absolute 0.03 K/mm3 (0.00-0.031); Immature Granulocyte Percent A 0.3 % (0-0.5); Lymphocytes Absolute Auto 3.81 K/mm3 (0.9-3.2); Lymphocytes Percent Auto 34.3 % (18.3-44.2); Mean Corpuscular HGB Conc 33.6 g/dl (32-36); Mean Corpuscular Hemoglobin 29.2 pg (26-34); Mean Corpuscular Volume 86.7 fl (80-100); Mean Platelet Volume 10.8 fl (7.4-10.4); Monocytes Absolute Auto 0.7 K/mm3 (0.1-0.6); Monocytes Percent Auto 6.6 % (2.6-8.5); Neutrophils Absolute Auto 6.3 K/mm3 (1.3-6.7); Neutrophils Percent Auto 56.5 % (45.5-73.1); Platelet Count Result 449 k/mm3 (150-375); Red Blood Count 5.04 M/mm3 (4.2-5.4); Red Cell Distribution Width 14.4 % (11.5-14.5); White Blood Count 11.1 K/mm3 (4.5-10.0)
[2024-04-08 00:17] VITALS: BP 113/83; PULSE 87; RESP 20; O2SAT 100
[2024-04-08 00:27] LABS: Alanine Aminotransferase 31 U/L (6-35); Albumin Level 4.3 g/dL (3.5-5.1); Alkaline Phosphatase 62 U/L (38-126); Anion Gap 8 mmol/L (4-12); Aspartate Amino Transferase 34 U/L (14-36); Bilirubin,Total 0.8 mg/dL (0.2-1.3); Blood Urea Nitrogen 16 mg/dL (7-17); Calcium 9.5 mg/dL (8.4-10.2); Carbon Dioxide 27 mmol/L (22-30); Chloride 104 mmol/L (98-107); Estimated CRCL calculation 106 ml/min; Estimated Glomerular Filt Rate > 60; Glucose 91 mg/dL (65-110); Potassium 3.4 mmol/L (3.4-5.0); Sodium 139 mmol/L (137-145)
[2024-04-08] MEDS: CYCLOBENZAPRINE HCL 5 MG TABLET PO (02:33)
== END 2024-04-08 02:43 | disposition home or self-care (01) ==
PROVIDERS: Emergency Provider Registered Nurse; PCP Nurse Practitioner Family
DX: R20.0 Anesthesia of skin (principal); R20.2 Paresthesia of skin; M54.2 Cervicalgia; G35 Multiple sclerosis
CPT/HCPCS: 36415; 72126; 72129; 72132; 80053; 85025; 93005; 96361; 96374; 99284; A9270; J2919; J7030; Q9967

== ENCOUNTER 2024-05-21 08:30 | Outpatient (CLI) | payer OTHER, SELFPAY ==
--- NOTE | ~2024-05-21 | MR_ITS ---
EXAMINATION: MR cervical spine wo con DATE: 05/21/2024 10:00 INDICATION: Multiple sclerosis. TECHNIQUE: Magnetic resonance imaging (MRI) of the cervical spine was performed without intravenous c ontrast. COMPARISON: CT cervical spine 04/08/2024 FINDINGS: There is mild kyphosis of lower cervical spine. Vertebral body heights are normal. Interver tebral disc heights are normal. The spinal cord signal intensity is normal. The following disc levels are specifically discussed: C2-C3: The disc does not extend beyond the endplate margin. There is no uncovertebral joint osteoarth ritis. There is moderate right and severe left facet joint osteoarthritis. There is no neural foramin al stenosis. There is no central canal stenosis. C3-C4: The disc does not extend beyond the endplate margin. There is no uncovertebral joint osteoarth ritis. There is severe bilateral facet joint osteoarthritis. There is no neural foraminal stenosis. T here is no central canal stenosis. C4-C5: The disc does not extend beyond the endplate margin. There is no uncovertebral joint osteoarth ritis. There is severe left facet joint osteoarthritis. There is no neural foraminal stenosis. There is no central canal stenosis. C5-C6: There is a central protrusion. There is mild right uncovertebral joint osteoarthritis. There i s no facet joint osteoarthritis. There is no neural foraminal stenosis. There is mild central canal s tenosis. C6-C7: The disc does not extend beyond the endplate margin. There is no uncovertebral joint osteoarth ritis. There is mild right facet joint osteoarthritis. There is no neural foraminal stenosis. There i s no central canal stenosis. C7-T1: The disc does not extend beyond the endplate margin. There is no uncovertebral joint osteoarth ritis. There is mild bilateral facet joint osteoarthritis. There is no neural foraminal stenosis. The re is no central canal stenosis. IMPRESSION: 1. Normal spinal cord. 2. Mild cervical spondylosis. Reviewed, dictated and finalized at location A. NOLOGY ANALYST
--- NOTE | ~2024-05-21 | MR_ITS ---
MRI of the thoracic spine Clinical History: Multiple sclerosis Technique: Axial T2-weighted and gradient images, and sagittal T1-weighted, T2-weighted, and STIR matilde ges were acquired. Following intravenous administration of 20 cc MultiHance gadolinium, T1-weighted f at-sat imaging was performed in the axial and sagittal planes. Findings: There is no fracture or subluxation of the thoracic spine. Vertebral bodies maintain normal height and alignment. No focal bone marrow signal abnormality seen. There is moderate degenerative disc change throughout the mid to lower thoracic spine. Probable small disc bulge at T10-T11. No other disc bulge or herniation. No spinal canal stenosis or cord compressi on evident. No neural foraminal narrowing evident. No abnormal signal seen in the spinal cord. No epidural mass or collection. No abnormal postcontrast enhancement. Paravertebral soft tissues are unremarkable. Impression: No spinal cord lesion evident. Mild degenerative spondylosis overall, as above. Reviewed, dictated and finalized at [facility]. NESS BANKING REPRESENTATIVE Impression: No spinal cord lesion evident. Mild degenerative spondylosis overall, as above.
--- NOTE | ~2024-05-21 | MR_ITS ---
EXAMINATION: MR brain/brain stem wo/w con DATE: 05/21/2024 10:22 INDICATION: Multiple sclerosis. TECHNIQUE: Magnetic resonance imaging (MRI) of the brain and brainstem was performed without and with 20 mL MultiHance intravenous contrast. COMPARISON: None. FINDINGS: There are approximately 6 total lesions of increased T2-weighted signal intensity in the br ain. Of these lesions, approximately 3 are periventricular, 1 is juxtacortical, and none are infraten torial. None of the lesions enhance. There is no acute ischemic infarct or intracranial hemorrhage. T he ventricles are normal in size. The orbits are normal. The paranasal sinuses are clear. The mastoid air cells are normal. IMPRESSION: 1. Mild cerebral white matter disease, consistent with multiple sclerosis. Reviewed, dictated and finalized at location A. REMOVER
== END 2024-05-21 08:31 | disposition home or self-care (01) ==
LOC: ANHIMG 08:31
PROVIDERS: PCP Family Medicine; Visit Provider Psychiatry & Neurology Neurology
DX: G35 Multiple sclerosis (principal)
CPT/HCPCS: 70553; 72141; 72157; A9577

== ENCOUNTER 2025-02-14 11:04 | Outpatient (CLI) | payer OTHER, SELFPAY ==
--- OUTSIDE RECORDS SUMMARY | 2025-02-14 11:30 | XMS_ITS | Clinical Summary ---
Author Organization [facility] Address [address] [place] [address] Care Team Providers Care Workforce Services Representative Name Role Phone Ela George NP Primary Care Provider [phone] Raiza Christensen MD Unavailable [phone] Lashawn Aj MD Unavailable [phone] Barbara Rasheed MANAGER INTERN Unavailable [phone] Allergies Active Allergy Reactions Criticality Noted Date Comments Cephalexin Hives Medium 01/24/2020 Ciprofloxacin Diarrhea Low 01/24/2020 C-Diff Sulfa (Sulfonamide Antibiotics) Rash Medium 10/2019 Medications hydroCHLOROthia zide (HYDRODIURIL) 25 mg tablet Take 1 tablet (25 mg total) by mouth daily 2 Active Additional Information Patient not taking.Reported on 09/27/2024 ergocalciferol (Vitamin D2) 50,000 unit capsule Take 1 capsule (50,000 Units total) by mouth once a week Active omeprazole (PriLOSEC) 20 mg capsule Take 1 capsule (20 mg total) by mouth 2 (two) times a day Active metoprolol XL (TOPROL-XL) 50 mg extended release tablet Take 1 tablet (50 mg total) by mouth daily 90 tablet 1 5 Active biotin 1 mg capsule Take by mouth Active tirzepatide (Mounjaro) 15 mg/0.5 mL pen injector injection Inject 0.5 mL (15 mg total) under the skin every 7 days 6 mL 1 5 Active Active Problems Problem Noted Date Diagnosed Date Morbid (severe) obesity due to excess calories 0 02/17/2023 Class 1 obesity due to exces s calories with serious comorbidity and body mass index (BMI) of 34.0 to 34.9 in adult 02/17/2023 Assessment & Plan (03/22/2024 10:04 AM CDT): Patient has lost 58 lbs thus far, continuing exercise and diet. Assessment & Plan (08/25/2023 12:48 PM COMPOSITION FLOOR LAYER): Healthy, low carbohydrate lifestyle and exercise for 150min/week recommended Mounjaro trial may belt builder helper efforts with T2DM diagnosis. Assessment & Plan (02/17/2023 10:19 AM CDT): Healthy, low carbohydrate lifestyle and exercise for 150min/week recommended Mounjaro trial may belt builder helper efforts with T2DM diagnosis. Palpitations 12/29/2021 Assessment & Plan (05/04/2022 12:08 PM COMPOSITION FLOOR LAYER): Pt has had Holter monitor performed per Dr. Christensen (cardio), unremarkable. Pt declined 30 day event monitor. Takes Toprol-XL 150 mg daily. Sinus tachycardia 12/29/2021 PVC's (premature ventricular contractions) 12/29 Hypercholesteremia 12/29/2021 Advanced maternal age 0107/13/2021 Assessment & Plan (07/13/2021 4:53 PM COMPOSITION FLOOR LAYER): We discussed that advanced maternal age is associated with increased risks of spontaneous , aneuploidy, placental previa, delivery, gestational diabetes, hypertensive disorders of , IUFD, congenital anomalies, growth restriction, , and complications of coexistent medical conditions. We discussed that aneuploidy screening can be done with multiple methods, including non-invasive testing with cell free DNA. We discussed the increased risk of preeclampsia, and the recommendations for ASA and baseline labs as noted above. Encounter for preconception consultation 022 Assessment & Plan (07/13/2021 4:56 PM COMPOSITION FLOOR LAYER): We discussed that in anticipation for that initiation of a vitamin is recommended along with abstinence from alcohol, illicit drugs, and environmental teratogens. Additionally, screening for cystic fibrosis/SMA should be offered for all women if not previously performed. Type 2 diabetes 02/12/2021 Overview (02/12/2021): Reported h/o this, per pt. Previously rx'ed metformin but never started it Start metformin - disc potential SEs Check labs - further mgmt pending results Healthy diet, exercise, wt loss Assessment & Plan (09/27/2024 10:22 AM CDT): Updated labs ordered. May take the opportunity in the next few months to try and start decreasing Mounjaro. Assessment & Plan (03/22/2024 10:03 AM CDT): A1c 5.2%, much improved and liver enzymes improving. Continuing Mounjaro, tolerating well. Assessment & Plan (08/25/2023 12:48 PM COMPOSITION FLOOR LAYER): Updated A1c ordered. Patient did not start the Mounjaro as of yet due to recent gallbladder surgery. Plans on starting in the next 2 weeks. Discussed potential side effects. Decrease the Metformin to 1,000 mg daily and start Mounjaro 2.5 mg once weekly. Can increase to 5 mg weekly if patient tolerating. Recheck labs in 3 months. Assessment & Plan (02/17/2023 10:25 AM CDT): A1c 5.8%, discussed Mounjaro. Patient good candidate. Will start the 2.5 mg weekly dose. Samples provided today. Likely will be able to come off of the Metformin, patient can decrease to 1, 000 mg daily from her 2,000 mg daily dose. Discussed statin use, LDL's ok at 129 but still encourage statin on board with the T2DM dx. Patient hesitant and we discussed working on dietary changes and rechecking levels in 3 months. Assessment & Plan (05/04/2022 10:21 AM COMPOSITION FLOOR LAYER): Most recent A1c 5.6% as of 06/2021 Continues Metformin XR Assessment & Plan (07/16/2021 5:48 PM COMPOSITION FLOOR LAYER): Ms. Alba has a history of type 2 diabetes diagnosed by HbA1c 7.8%. She is currently taking metformin and has also lost 36 lbs. Her fasting glucoses are now improved, but reports them all being >/= 95. Her most recent HbA1c is 5.6%. We discussed the management of a complicated by type 2 diabetes. We reviewed the insulin insensitivity that occurs from , and the abnormal glucose metabolism that occurs. The maternal risks of type 2 diabetes include exacerbation of her chronic hypertension, pre-eclampsia, operative delivery, obstetrical trauma, and section. We discussed that in those with pre-existing diabetes prior to have increased / risks. These increased risks are based on their glycemia during conception and through the first trimester during organogenesis for congenital anomalies. The most sensitive organ tissues are the cardiovascular and central nervous system tissues. Her mos recent HbA1c is 5.6%, which places her risk of these complications to the average of the general population. We also reviewed the risk for growth restriction or large for gestational age fetuses which is more attributable to increased fat/adipose tissue, which can lead to increased risks for large birthweight, delivery, and shoulder dystocia/ injury. Neonates can also have difficulty with transition to life outside of the uterus. They are at an increased risk for hypoglycemia requiring treatment, NICU admission, jaundice, polycythaemia after , future childhood obesity and diabetes mellitus. We discussed the reduction of the above risks with good glycemic control. The recommended blood glucose monitoring regimen, which is fasting and 1-hour post-prandial daily. The goals are fasting glucose of <95 and a 1-hour post- prandial glucose of <140 as these have been associated with decreased risk of adverse outcomes. We discussed that medication may be required in and that often insulin is the preferred regimen. We also discussed the increased antepartum surveillance that occurs in a complicated by insulin insensitivity requiring medications, including serial growth ultrasounds starting at 24 weeks and surveillance starting at 32 weeks. Recommendations: - Congratulated on recent weight loss and dietary/exercise modifications - management recommendations as noted above if becomes , including growth US and surveillance Assessment & Plan (02/12/2021 5:18 PM CDT): Reported h/o this, per pt. Previously rx'ed metformin but never started it Start metformin - disc potential SEs Check labs - further mgmt pending results Healthy diet, exercise, wt loss Weight loss counseling, encounter for 02/12/2021 Overview (02/12/2021): Healthy diet, exercise Start metformin (reported h/o impaired fasting glucose - check labs) Further eval/mgmt pending lab results - may consider adding GLP-1 Assessment & Plan (05/04/2022 10:22 AM COMPOSITION FLOOR LAYER): Has lost approximately 37 lbs, may consider GLP-1 for further weight loss with pt's T2DM dx. Healthy, low carbohydrate lifestyle and exercise for 150min/week recommended Assessment & Plan (02/12/2021 5:17 PM CDT): Healthy diet, exercise Start metformin (reported h/o impaired fasting glucose - check labs) Further eval/mgmt pending lab results - may consider adding GLP-1 Hidradenitis suppurativa 02/12/2021 Overview (02/12/2021): Failed topical clindamycin Start metformin - discussed potential SEs. Discussed return precautions Assessment & Plan (03/22/2024 10:04 AM CDT): Current infection, Doxycycline rx'd. Assessment & Plan (02/12/2021 5:16 PM CDT): Failed topical clindamycin Start metformin - discussed potential SEs. Discussed return precautions Dysphagia 02/12/2021 Overview (02/12/2021): DDx: GERD v esophageal spasms v other Resolved since being on increased dose of PPI. Taper down on PPI as discussed Dietary modifications If sx return, consider increasing PPI again temporarily vs trialing CCB for esophageal spasms (which could potential also help with HTN) Discussed ER precautions Assessment & Plan (05/04/2022 12:12 PM COMPOSITION FLOOR LAYER): Patient has a GI provider at [facility] who recently increased her Omeprazole to 40 mg BID x 6 weeks following episode of gastritis x 2 weeks ago. Pt may eventually need EGD. Assessment & Plan (02/12/2021 5:20 PM CDT): DDx: GERD v esophageal spasms v other Resolved since being on increased dose of PPI. Taper down on PPI as discussed Dietary modifications If sx return, consider increasing PPI again temporarily vs trialing CCB for esophageal spasms (which could potential also help with HTN) Discussed ER precautions Hypertension associated with diabetes 02/12/2021 Overview (02/12/2021): Upper limit of normal today in office, pt reports 140s/90s at home but reports situational anxiety when checking her BP Cont HCTZ, toprol xl (okay to be on per previous OBGYN. 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 If BP still uncontrolled, consider adding CCB (would avoid MÓNICA/ARB with trying to conceive) Assessment & Plan (09/27/2024 10:20 AM CDT): BP normal in office today. No longer needing the HCTZ Updated labs ordered Assessment & Plan (03/22/2024 10:04 AM CDT): BP soft in office today, discussed monitoring and possibly decreasing the HCTZ to 12.5 mg daily. Assessment & Plan (08/25/2023 12:48 PM COMPOSITION FLOOR LAYER): BP normal in office, continues Metformin and Metoprolol. Assessment & Plan (05/04/2022 12:08 PM COMPOSITION FLOOR LAYER): BP stable in office today, labs ordered Assessment & Plan (07/16/2021 5:45 PM COMPOSITION FLOOR LAYER): Ms. Alba has a history of chronic hypertension for which she takes HCTZ 25 mg qD and metoprolol 100 mg XL qD. We counseled the patient on the effects of chronic hypertension on including the risk of worsening blood pressures requiring titration of antihypertensive therapy, increased risk of preeclampsia, growth restriction, and need for delivery with associated complications of prematurity. Rates of abruption and stillbirth are also higher in women with chronic hypertension. Specifically, we discussed that hypertension is associated with development of superimposed pre-eclampsia in approximately 25% of patients, which can result in iatrogenic delivery in up to 30% of women with mild chronic hypertension. Baseline pre-eclampsia labs (CBC, creatinine, BUN, AST, ALT, LDH) is recommended in all patients with a history of hypertension. A workup for end organ damage is also recommended, including an EKG and 24-hour urine for protein. A fundoscopic exam by ophthalmology is recommended as well, if one has not been performed within 12 months. A baby aspirin is recommended starting 12 weeks for preeclampsia prophylaxis. We reviewed the natural course of blood pressures in , that usually patients experience a decrease in systemic pressure in the first trimester and a gradual rise starting around 28 weeks back to their baseline by the third trimester. This decline in blood pressure does not always occur in women with chronic hypertension. Mildly elevated blood pressures (<150/100) in of patients with chronic hypertension have not been associated with poor outcome in the fetus or the mother. We reviewed the goals of antihypertensive therapy in . Specifically, the goal is to avoid severe hypertension which can result in maternal cerebrovascular accidents or coronary events. In contrast to the non state, very tight blood pressure control is not recommended during and has been associated with lower birthweight infants. In general, antihypertensive therapy is initiated when systolic blood pressures are greater than 160 mmHg and/or diastolic blood pressures are greater than 105 mm Hg. The goals of therapy are between 120 and 155 mmHg systolic and 80-105 mmHg diastolic. We generally recommend home blood pressure monitoring to assist with medication titration as well as to monitor her for the development of preeclampsia. We reviewed the relative safety of various antihypertensive classes of medications during . Labetalol or long- acting nifedipine are safe options for blood pressure control in . We generally avoid MÓNICA inhibitors or angiotensin receptor blockers during due to their association with malformations if taken during the first trimester as well as renal dysfunction and oligohydramnios during the second trimester. Finally, we discussed the recommendation for increased antepartum surveillance in patients with chronic hypertension. Given the increased risk of IUGR, serial monthly growth scans are recommended starting at 24-26 weeks, with surveillance starting at 32 weeks. If her hypertension remains mild with no need for medication, delivery at 38 - 39 6/7 weeks is recommended, although we discussed the possibility of earlier delivery for uncontrolled hypertension or pre-clampsia. Recommendations: - Recommend discontinuation of HCTZ. She would prefer to continue metoprolol at this time rather than transition to labetalol. We discussed the association of metoprolol with growth restriction. If she requires an additional agent for hypertensive control, we would recommend nifedipine. - Serial growth ultrasounds and surveillance once , with delivery planning pending blood pressure control - Low dose ASA at 12-36 weeks for preeclampsia prevention - Baseline assessment of organ function and -induced hypertension panel, which can be completed pre- or in the first trimester - CBC, CMP, LDH, urine protein/creatinine ratio, EKG, optho exam Assessment & Plan (02/12/2021 5:21 PM CDT): Upper limit of normal today in office, pt reports 140s/90s at home but reports situational anxiety when checking her BP Cont HCTZ, toprol xl (okay to be on per previous OBGYN. 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 If BP still uncontrolled, consider adding CCB (would avoid MÓNICA/ARB with trying to conceive) Multiple benign nevi 02/12/2021 Assessment & Plan (02/12/2021 5:22 PM CDT): Benign appearance to nevi on L forearm, L chest, L posterior neck. Reassurance provided Discussed return precautions Hepatic steatosis 02/12/2021 Assessment & Plan (02/17/2023 10:18 AM CDT): Liver enzymes increased but improved from baseline Diet modifications. Assessment & Plan (05/04/2022 12:12 PM COMPOSITION FLOOR LAYER): Continues to focus on diet, will check labs today. Assessment & Plan (02/12/2021 5:31 PM CDT): Reported h/o elevated LFTs and hepatic steatosis on US, per pt Check labs Healthy diet, exercise, wt loss Avoid hepatotoxins Multiple sclerosis (CMS/HCC) 04/10/2020 Overview (02/12/2021): Stable off any medication Cont eval/mgmt per neuro, Dr. Lindo Cont to follow ophtho as scheduled Assessment & Plan (05/04/2022 12:15 PM COMPOSITION FLOOR LAYER): Patient follows with Neuro, condition is stable-not currently on any medications. Diagnosed in June 2011 after having vision impairment-dx with optic neuritis. Has tried Dopaxone in the past but had adverse reaction. Last MRI was 03/2020 which showed multiple new lesions, decided to hold off on treatment as patient is hoping to become . She is currently seeing fertility specialist. Assessment & Plan (07/18/2021 10:18 PM COMPOSITION FLOOR LAYER): Ms. Alba was diagnosed in 06/2011 after having vision impairment and was diagnosed with optic neuritis. She had one relapse about 5 years later and has been asymptomatic since. She has tried dopaxone ([id number]) for disease-modifying therapy but had an adverse reaction. She is currently on no DMT. Her last MRI was in 03/2020 which demonstrated multiple new lesions; 03/2020 was also the last time she saw neurology. She and her neurologist discussed interferon as a DMT, however the patient elected not to start anything given she was hoping to become in the near future. She has not had any flares for over 1 year. This is important, because ideally is scheduled for a time when MS activity is quiescent for at least 1 year. Ms. Alba is planning to undergo fertility treatments with assisted reproduction technology. Although there is no definitive data, ART (including IVF) appears to increase the risk of MS disease activity. It is unclear if GnRH agonsits, FSH, progesterone, or simply the rapid changes of reproductive hormone levels in women undergoing ART are responsible for the increase in MS activity. We discussed that known evidence suggests a tendency for remission of multiple sclerosis during and an increased frequency of exacerbations in the first 3-6 months . Data does not suggest that itself alters the shelter course of multiple sclerosis or the subsequent degree of neurological disability. Similarly, multiple sclerosis is not thought to significantly influence the natural course of or childbirth. We discussed the importance of maternal disease control in and that ultimately, she has to weigh the risks and benefits of therapy. Currently, Ms. Alba is not on any disease modifying therapy. However, if she experiences a flare or has evidence of significant disease progression on MRI, it is important to weight the risks and benefits. Some DMTs are potential/known teratogens and are contraindicated in . Interferon has been associated with lower mean weight and , but has not been associated with miscarriage, delivery, or congential anomalies. Similarly, most women forgo DMTs while , though the use of interferon or glatiramer acetate is probably safe for ; no side effects have been observed in breastfed infants with either of these medications. We encouraged Ms. Alba to discuss the options again with her neurologist and have a follow up MRI. Briefly, we discussed the association between low Vitamin D and MS disease activity. Recommendations: - Given that patient has had no recent flares without medication, it is reasonable for her to proceed with . However, we recommend follow up with neurology regarding risks/benefits/alternatives of starting disease modifying therapy and follow up MRI - Most recent neurology note from 03/2020 noted recommendation for follow up q trimester once , with plan to start interferon 1-2 months prior to delivery to be effective at limiting the risk of relapse after delivery - Follow up with opthalmology given her history of optic neuritis - Continue Vit D supplementation 2000 international units daily Assessment & Plan (02/12/2021 5:14 PM CDT): Stable off any medication Cont eval/mgmt per neuro, Dr. Lindo Cont to follow ophtho as scheduled Resolved Problems Problem Noted Date Diagnosed Date Resolved Date BMI 40.0-44.9, adult 02/12/2021 023 Assessment & Plan (07/16/2021 5:49 PM COMPOSITION FLOOR LAYER): We discussed the risks associated with obesity, including preeclampsia, further impaired glucose tolerance, delivery, growth abnormalities (IUGR and macrosomia) and stillbirth. In , we recommend a specialized anatomic survey, serial growth assessments, and testing. Aspirin 81mg should be started after 12 weeks to decrease the risk of preeclampsia. Weight gain of no more than 11-20 lbs is recommended in . Recommendations: - Congratulated patient on weight loss and healthy lifestyle habits - Once : - Low dose ASA at 12-36 weeks gestation - Weight gain of no more than 11-20 lbs - Growth ultrasounds and surveillance as above Assessment & Plan (02/12/2021 1:58 PM CDT): BMI follow up includes nutrition counseling, exercise counseling and education provided Immunizations Immunization Administration Dates Next Due Influenza, Trivalent, Preser vative Free, Intramuscular 03/20/2015 Influenza, Unspecified 04/03/2024,2022(Deferred: Patient Refused),06/21/2022(Deferred: Patient Refused),04/03/2022,04/03/2022, 022(Deferred: Patient Refused),03/21/2020,03/21/2019 Surgical History Surgery Date Site/Laterality Comments CHOLECYSTECTOMY 06/21/2022 - 06/20/2023 N/A Medical History Medical History Date Comments MS (multiple sclerosis) Hypertension GERD (gastroesophageal reflux disease) T2DM (type 2 diabetes mellitus) (HCC) Family History Medical History Relation Name Comments Mitral valve prolapse Brother Other Brother Marfan-lke synd leonard, pectus excavatum Obesity Father Diabetes Maternal Grandfather Cancer Maternal Grandmother Cancer Mother's Sister Relation Name Status Comments Brother Alive Father (Age 47) Maternal Grandfather Maternal Grandmother Mother's Sister Social History Tobacco Use Types Packs/Day Years Used Date Smoking Tobacco: Never Passive Smoke Exposure: Never Smokeless Tobacco: Never Tobacco Cessation:Counseling Given: Not Answered Alcohol Use Standard Drinks/Week Comments Never 0 (1 standard drink = 0.6 oz pur e alcohol) AUDIT-C Answer Date Recorded Q1: How often do you have a drink containing alc ohol? 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 Not on file Not on f ile Obstetrics History Para Term AB IAB SAB Ectopic Multiple Livin g Live Births 0 0 0 0 0 0 0 0 0 0 0 Last Filed Vital Signs Vital Sign Reading Time Taken Comments Blood Pressure 90/62 09/27/2024 9:30 AM CDT Pulse 94 09/27/2024 9:30 AM CDT Temperature 36.4 C (97.5 F) 09/27/2024 9:30 AM CDT Respiratory Rate 20 08/25/2023 9:20 AM COMPOSITION FLOOR LAYER Oxygen Saturation 95% 09/27/2024 9:30 AM CDT Inhaled Oxygen Concentration - - Weight 77.6 kg (171 lb) 09/27/2024 9:30 AM CDT Height 165.1 cm (5' 5) 09/27/2024 9:30 AM CDT Body Mass Index 28.46 09/27/2024 9:30 AM CDT Plan of Treatment Health Maintenance Due Date Last Done Comments Albumin Creatinine Ratio, Urine 1984 Breast Cancer Screening-Mammogram 1984 Hepatitis C Screening 1984 eGFR 1984 Dilated Eye Exam 1984 DTaP/Tdap/Td Vaccine (1 - Tdap) 12/15/1995 Varicella Vaccines (1 of 2 - 13+ 2-dose series) 1997 Hepatitis B Screening 2002 Pneumococcal vaccine <65 (1 of 2 - PCV) 12/15/2003 HPV Vaccines (1 - 3-dose SCD M series) 12/15/2011 Foot Exam 05/04/2023 05/04/2022 Hemoglobin A1C 08/15/2023 02/12/2023, 01/20, 07/14/2021 Lipid Panel 02/13/2024 02/12/2023, 02/12/2023 Cervical Cancer Screening 02/18/2024 02/17/2023, Covid-19 Vaccine ( - 2023-2 5 season) 2024 06/27/2021, 08/20/2020, 07/23/2020 Influenza Vaccine (#1) 2025 , 04/03/2022, 04/03/2022, Additional history exists Depression Screening 09/27/2025 09/27/2024, 03/22/2024, 08/25/2023, Additional history exists Regular Well Visit/Exam 18-64 09/27/2025, 02/17/2023, 02/12/2021 Procedures Procedure Name Priority Date/Time Associated Diagnosis Comments PAP WITH REFLEX TO HIGH RISK HPV Routine 02/17/2023 10:07 AM CDT HEMOGLOBIN A1C Routine 02/12/2023 Type 2 diabetes mellitus without complication, without long-term current use of insulin (HCC) HM LIPID PANEL Routine 02/12/2023 from Last 3 Months or Most Recently Relevant to Health Maintenance Results * Pap with reflex to High Risk HPV and Genotyping (Cytology Component) (02/17/2023 10:07 AM CDT) Pap test 02/17/2023 10:0 7 AM CDT 02/18/2023 10:07 AM CDT Narrative 02/25/2023 1:44 PM CDT [facility] Department of Pathology [address] [place] [id number] Final Report Note to Patients: This report may contain a detailed description of human tissue sent by a health care provider to the laboratory for pathologic evaluation. The content of this report is essential for diagnosis and may provide important critical findings. This information may be unfamiliar to patients to review without a medical professional present. It is advised that the patient review this report in the presence of a health care provider who can answer questions and explain the details. Patient Name: ANAHI ALBA Address: [address] [place] [address] Gender: F : 1985 (Age: 37) Service: Location: N : [id number] [facility] #: [id number] Patient Type: SPECIMEN Taken: 02/17/2023 Received: 02/18/2023 Accessioned:: 02/19/2023 Reported: 02/25/2023 Physician(s): Carmenza Castellanos F.N.P. Diagnosis: SOURCE OF SPECIMEN Imaged Thinprep Pap Test w/ Reflex HPV - Brickmason Helper Cytologic Material: STATEMENT OF ADEQUACY - Specimen satisfactory for interpretation; endocervical/transformation zone component absent or insufficient GENERAL CATEGORIZATION: - Negative for intraepithelial lesion or malignancy DAVIS Nagel(ASCP)DAVIS Bagley(ASCP) Report Electronically Reviewed and Signed Out By DAVIS Bagley(ASCP) 02/25/2023 13:44:16Specimen(s) Received: A: Imaged Thinprep Pap Test w/ Reflex HPV - Brickmason Helper Cytologic Material Clinical History: The Pap test is a screening test used to aid in the detection of cervical cancer and its precursors. It should not be the sole means by which malignant and premalignant lesions are diagnosed. Both false negative and false positive results may occur. It also has poor sensitivity for the detection of endometrial lesions and should not be used to evaluate suspected endometrial abnormalities. For these reasons it is most important to obtain Pap tests at regular intervals. The performance characteristics of some immunohistochemical stains, fluorescence in-situ hybridization tests and immunophenotyping by flow cytometry cited in this report (if any) were determined by the Surgical Pathology Department at [facility] as part of an ongoing automotive quality manager program and in compliance with federally mandated regulations drawn from the Clinical Laboratory Improvement Act of 1988 (CLIA '88). Some of these tests rely on the use of analyte specific reagents and are subject to specific labeling requirements by the US Food and Drug Administration. Such diagnostic tests may only be performed in a facility that is certified by the Department of Health and Human Services as a high complexity laboratory under CLIA '88. The FDA has determined that such clearance or approval is not necessary. This test is used for clinical purposes. It should not be regarded as investigational or for research. Nevertheless, federal rules concerning the medical use of analyte specific reagents require that the following disclaimer be attached to the report: This test was developed and its performance characteristics determined by the Surgical Pathology Department [facility]. It has not been cleared or approved by the U. S. Food and Drug Administration. Ela George LAB CYTOLOGY ORDERABLES Final Re sult * LIPID PANEL (02/12/2023) SCRIBED Cholesterol, Total 209 SCRIBED Triglycerides 186 SCRIBED HDL 34 SCRIBED LDL 129 Historical Provider HEALTH MAINTENANCE Final Result * Hemoglobin A1c (02/12/2023) SCRIBED Hemoglobin A1c 5.8 5.7 - 6.5 % EXTERNAL LAB Blood 02/12/2023 Ela George NP LAB BLOOD ORDERABLES Final Resul t EXTERNAL LAB from Last 3 Months or Most Recently Relevant to Health Maintenance Insurance [facility] Address: [address] [address] [facility] [employer] Address: [address] [address] [place] [address] [facility] [employer] Address: [address] [address] [place] [address] Care Teams Workforce Services Representative Relationship Specialty Start Date End Date Ela George NP PCP - General Family Medicine 05/04/22 Raiza Christensen MD Consulting Physician Cardiology 05/04/22 Lashawn Aj MD [address] [address] Reproductive Endocrinology and Infertility 05/04/22 Barbara Rasheed, ELENA [address] [address] Nurse Practitioner Neurology 05/04/22
--- OUTSIDE RECORDS SUMMARY | 2025-02-14 11:30 | XMS_ITS | Clinical Summary ---
Author Organization [employer] [facility] Address [address] [place] [address] Care Team Providers Care Brine Tank Operator Name Role Phone Unavailable Primary Care Provider Unavailabl e Allergies No known active allergies Medications tirzepatide (Mounjaro) 5 mg/0.5 mL Pen Injector INJECT 5 MG UNDER THE SKIN EVERY 7 DAYS. 2 mL 1 10/12/2023 2:00 PM CDT 4 Active tirzepatide (Mounjaro) 15 mg/0.5 mL Pen Injector Inject 0.5 mL (15 mg) by subcutaneous injection every 7 days. 6 mL 1 01/29/2025 4:22 PM CDT 5 Active Encounters Date Type Department Care Team Description 01/23/2025 External Device Data [facility] ABSTRACTION Provider, Abstract 01/03/2025 External Device Data [facility] ABSTRACTION Provider, Abstract 01/02/2025 External Device Data [facility] ABSTRACTION Provider, Abstract 12/06/2024 External Device Data [facility] ABSTRACTION Provider, Abstract 12/05/2024 External Device Data [facility] ABSTRACTION Provider, Abstract 12/05/2024 External Device Data [facility] ABSTRACTION Provider, Abstract from Last 3 Months Social History Tobacco Use Types Packs/Day Years Used Date Smoking Tobacco: Never Assessed Comments Unknown Sex and Gender Information Value Date Recorded Sex Assigned at Not on file Legal Sex Female 10:35 AM CDT Gender Identity Not on file Sexual Orientation Not on file Plan of Treatment Health Maintenance Due Date Last Done Comments HPV VACCINES (1 - 3-dose series) 12/15/1999 DTAP/TDAP/TD VACCINES (1 - Tdap) 12/15/2003 HEPATITIS B VACCINES (1 of 3 - 19+ 3-dose series) 11/20 HPV/Cotest (21-29) 2005 CERVICAL CANCER SCREENING 2014 HPV/Cotest (30-65) 2014 PAP SMEAR 2014 BREAST CANCER SCREENING 2024 INFLUENZA VACCINE (#1) 2025 Insurance RX [facility] [employer]
--- OUTSIDE RECORDS SUMMARY | 2025-02-14 11:30 | XMS_ITS | Encounter Summary ---
Author Organization [facility] Healthcare Address [address] [place] [address] Care Team Providers Care Manager Electrical Name Role Phone No, Physician Primary Care Provider [phone] Shona Frazier DO Primary Care Provi claire No, Physician Primary Care Provider [phone] Ela George NP Primary Care Provider [phone] Raiza Christensen MD Unavailable [phone] Lashawn Aj MD Unavailable [phone] Barbara Rasheed BEARING RING ASSEMBLER Unavailable [phone] Encounter Details Date Type Department Care Team (Late st Contact Info) Description 03/21/2020 Telephone [facility] Radiology [address] [place], [place] [id number] Barbara Rasheed, BEARING RING ASSEMBLER [address] [facility] [address] [place], [place] [id number] Social History Tobacco Use Types Packs/Day Years Used Date Smoking Tobacco: Never Smokeless Tobacco: Never Alcohol Use Standard Drinks/Week Comments Never 0 (1 standard drink = 0.6 oz pur e alcohol) AUDIT-C Answer Date Recorded Q1: How often do you have a drink containing alc ohol? 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 Not on file Not on f ile documented as of this encounter Plan of Treatment Not on file documented as of this encounter Visit Diagnoses Not on filedocumented in this encounter Care Teams Manager Electrical Relationship Specialty Start Date End Date No, Physician PCP - General 01/10/20 02/11/21 Shona Frazier DO [address] [place] [address] PCP - General Family Medicine 02/12/21 12/28/21 No, Physician PCP - General 12/29/21 05/03/22 Ela George NP [address] [place] [address] PCP - General Family Medicine 05/04/22 Raiza Christensen MD [address] [place] [address] Consulting Physician Cardiology 05/04/22 Lashawn Aj MD [address] [address] Reproductive Endocrinology and Infertility 05/04/22 Barbara Rasheed, ELENA [address] [address] Nurse Practitioner Neurology 05/04/22 documented as of this encounter
--- OUTSIDE RECORDS SUMMARY | 2025-02-14 11:30 | XMS_ITS | Encounter Summary ---
Author Organization [facility] Healthcare Address [address] [place] [address] Care Team Providers Care Patch Washer Name Role Phone No, Physician Primary Care Provider [phone] Shona Frazier DO Primary Care Provi claire No, Physician Primary Care Provider [phone] Ela George NP Primary Care Provider [phone] Raiza Christensen MD Unavailable [phone] Lashawn Aj MD Unavailable [phone] Barbara Rasheed SAIL REPAIRER Unavailable [phone] Encounter Details Date Type Department Care Team (Late st Contact Info) Description 03/29/2020 Telephone [facility] Radiology [address] [place], [place] [id number] Barbara Rasheed, SAIL REPAIRER [address] [facility] [address] [place], [place] [phone] Social History Tobacco Use Types Packs/Day Years [...] on filedocumented in this encounter Care Teams Patch Washer Relationship Specialty Start Date End Date No, Physician PCP - General 01/10/20 02/11/21 Shona Frazier DO [address] [place] [address] PCP - General Family Medicine 02/12/21 12/28/21 No, Physician PCP - General 12/29/21 05/03/22 Ela George NP [address] [place] [address] PCP - General Family Medicine 05/04/22 Raiza Christensen MD [address] [place] [address] Consulting Physician Cardiology 05/04/22 Lashawn Aj MD [address] [address] Reproductive Endocrinology and Infertility 05/04/22 Barbara Rasheed, ELENA [address] [address] Nurse Practitioner Neurology 05/04/22 documented as of this encounter
[2025-02-14 11:32] LABS: Hematocrit 46.1 % (37.0-47.0); Hemoglobin 15.2 g/dL (12.0-15.0); Immature Granulocyte Percent A 0.1 % (0-0.5); Lymphocytes Absolute Auto 3.06 K/mm3 (0.9-3.2); Mean Corpuscular HGB Conc 33.0 g/dl (32-36); Mean Corpuscular Hemoglobin 28.8 pg (26-34); Mean Corpuscular Volume 87.5 fl (80-100); Nucleated Red Blood Cells Absolute Auto 0.000 K/mm3 (0.0-0.012); Nucleated Red Blood Cells Perc 0.0 % (0.0-0.2); Platelet Count Result 552 k/mm3 (150-375); Red Blood Count 5.27 M/mm3 (4.2-5.4); White Blood Count 8.0 K/mm3 (4.5-10.0)
[2025-02-14 11:49] LABS: Hemoglobin A1C 5.2 % (<5.7)
[2025-02-14 12:02] LABS: MALB Creatinine Ratio < 36.6 mg/g (0-30)
[2025-02-14 12:03] LABS: Alanine Aminotransferase 82 U/L (6-35); Albumin Level 4.5 g/dL (3.5-5.1); Alkaline Phosphatase 63 U/L (38-126); Anion Gap 7 mmol/L (4-12); Aspartate Amino Transferase 48 U/L (14-36); Bilirubin,Total 1.1 mg/dL (0.2-1.3); Blood Urea Nitrogen 16 mg/dL (7-17); Calcium 9.6 mg/dL (8.4-10.2); Carbon Dioxide 27 mmol/L (22-30); Chloride 101 mmol/L (98-107); Cholesterol 191 mg/dL (0-200); Estimated Glomerular Filt Rate > 60; Glucose 89 mg/dL (65-110); HDL Direct 45 mg/dL; Potassium 4.3 mmol/L (3.4-5.0); Sodium 135 mmol/L (137-145); Total Protein 7.6 g/dL (6.3-8.2); Triglycerides 77 mg/dL (<150)
[2025-02-14 14:19] LABS: Giant Platelets Present; Schistocytes None Seen
[2025-02-15 07:09] LABS: TSH 1.820 uIU/mL (0.450-4.500)
== END 2025-02-14 11:05 | disposition home or self-care (01) ==
LOC: ANHLAB 11:07
PROVIDERS: PCP Family Medicine; Visit Provider Family Medicine
DX: E11.9 Type 2 diabetes mellitus without complications (principal); D75.1 Secondary polycythemia; Z11.59 Encounter for screening for other viral diseases
CPT/HCPCS: 36415; 80053; 80061; 82043; 83036; 84439; 84443; 84481; 85025; 86376; 86803

== ENCOUNTER 2025-04-29 08:53 | Emergency (ER) | payer OTHER, SELFPAY ==
--- NOTE | ~2025-04-29 | XR_ITS ---
Examination: XR ankle RT min 3V, XR foot RT min 3V Clinical History: pain to heel x 2 days Comparison: None Technique: 4 views right ankle, 4 views right foot Findings/impression: Right ankle: 1. No fracture or dislocation. Right foot: 1. No acute fracture or dislocation. 2. Calcaneal enthesophyte at insertion site of plantar fascia and Achilles tendon. 3. Degenerative change second toe DIP joint. Reviewed, dictated and finalized at location R. IFF OFFICER
--- NOTE | 2025-04-29 09:00 | ED.GENADULT ---
HPI - General Adult General Chief complaint: Extremity Injury, Lower Stated complaint: R Ankle Pain Time Seen by Provider: 04/29/25 09:01 Source: patient Mode of arrival: ambulatory Limitations: no limitations History of Present Illness HPI narrative: 39-year-old female patient presents to the [facility] with complaints of right heel pain that started approximately 2 days ago. Patient states this started hurting in middle night about 4:00 a.m. Wednesday morning. Patient states yesterday she iced it, use heat was taking naproxen for pain but states that the pain increased over night again last night. Patient denies any specific injury that she is aware of patient states she does do some light exercise. Related Data Home Medications ?Medication ?Instructions ?Recorded ?Confirmed ?Last Taken ?Type aspirin .ROUTE 04/29/25 Unknown History metoprolol succinate 25 mg 25 mg PO DAILY 04/29/25 04/29/25 Unknown History tablet,extended release 24 hr Allergies Allergy/AdvReac Type Severity Reaction Status Date / Time cephalexin (From Keflex) Allergy Mild Hives Verified 04/29/25 09:07 sulfamethoxazole (From Allergy Mild Rash Verified 04/29/25 09:07 Bactrim) trimethoprim (From Bactrim) Allergy Mild Rash Verified 04/29/25 09:07 ciprofloxacin (From Cipro) AdvReac Intermediate Other Verified 04/29/25 09:07 Review of Systems Review of Systems: CONSTITUTIONAL: Denies fever, chills, or sweats. EYES: Denies visual changes, redness, or discharge. ENT: Denies rhinorrhea, congestion, sore throat, or otalgia. CARDIOVASCULAR: Denies chest pain, palpitations, or edema. RESPIRATORY: Denies cough or dyspnea. GASTROINTESTINAL: Denies abdominal pain, nausea, vomiting, or diarrhea. GENITOURINARY: Denies dysuria or hematuria. SKIN: Denies rash or itching. MUSCULOSKELETAL: Denies back pain, joint pain, or myalgia. Positive right heel pain times 2 days NEUROLOGIC: Denies headache, numbness, or weakness. PSYCHIATRIC: Denies anxiety or depression. [facility] Past Medical History Medical History Multiple sclerosis exacerbation Family history of hypertension Cholelithiasis Elevated liver enzymes Helicobacter pylori (H. pylori) infection Surgical History Surgical History Hx laparoscopic cholecystectomy on 03/24/23 PDC Social History Social History Alcohol intake: never Substance use: never Substance use type: does not use Do You Feel Safe in your Home?: Yes Lack of Transportation: No Lack of Food: Never True Current Housing: I Have Housing Concerned About Future Housing: No Difficulty Paying Gas/Electric Bills: No Difficulty Paying for Meds: No Currently Unemployed: No Education: Master's Degree or Higher Difficulty w/ Childcare or Family Care: No Living arrangements: with family Spiritual care concerns: No Comments At the time of my signature I agree with nursing past medical history, surgical, social, and family history. There is no relevant family history pertinent to the presenting complaint. Exam Narrative: GENERAL: Well-appearing, well-nourished, and in no acute distress. HEAD: Normocephalic, atraumatic. EYES: PERRLA and EOMI. ENT: Nares clear, no rhinorrhea or epistaxis. Mucous membranes moist. NECK: Supple. No lymphadenopathy CHEST: Clear to auscultation. No respiratory distress. HEART: Regular rate and rhythm. No murmur heard. Normal peripheral pulses. ABDOMEN: Soft, nontender, nondistended, normal active bowel sounds. EXTREMITIES: Patient able to bear weight and ambulate with pain. No surface trauma, ecchymosis, erythema, lesions, ulcers or break in skin integrity. The R foot is without obvious asymmetry or deformity when compared to the L foot. No bony step-off, nontender to palpation over the toes, midfoot or sole. patient has tenderness noted to hindfoot on the right foot. Slight tenderness noted between the heel and arch of the sole of the foot. Normal plantar/dorsiflexion, inversion/eversion. Distal motor and neurovascular status are intact SKIN: Warm, dry, no rash. NEURO: No focal deficits. Alert and oriented x3. Course Course Level of Care: Express Care Visit Reevaluation(s) Reevaluation #1: Re-evaluated patient notified her that the x-ray does reveal most likely a calcaneus bone spur. Discussed with patient that we can give her some steroids to help with the inflammation and pain. Patient is in agreement with this plan care also recommended inserts for the shoes, stretching exercises and follow up with Podiatry if pain continues. Date: 04/29/25 Time: 09:53 Vital Signs Vital signs: Vital Signs Temperature 36.6 C 04/29/25 09:05 Pulse Rate 96 04/29/25 09:05 Respiratory Rate 16 04/29/25 09:05 Blood Pressure 113/81 04/29/25 09:05 Pulse Oximetry 100 04/29/25 09:05 Oxygen Delivery Room Air 04/29/25 09:05 Temperature 36.6 C 04/29/25 09:05 Pulse Rate 96 04/29/25 09:05 Respiratory Rate 16 04/29/25 09:05 Blood Pressure 113/81 04/29/25 09:05 Pulse Oximetry 100 04/29/25 09:05 Oxygen Delivery Room Air 04/29/25 09:05 Vital signs reviewed. Medical Decision Making MDM Narrative Medical decision making narrative: Plan of care for patient is to x-ray the foot and ankle to assess for any possible bone spurs or hairline fractures that could be causing the pain if this is negative will most likely treat as a plantar fasciitis. I will reassess patient once this has resulted. Differential Diagnosis Differential Diagnosis: Differential diagnosis: Foot fracture, crush injury, compartment syndrome, contusion, sprain, tendinitis,lisfranc sprain or fracture, avulsion fracture, grown toenail, diabetic ulcer. Vital Signs Vital Signs: Vital Signs Temperature 36.6 C 04/29/25 09:05 Pulse Rate 96 04/29/25 09:05 Respiratory Rate 16 04/29/25 09:05 Blood Pressure 113/81 04/29/25 09:05 Pulse Oximetry 100 04/29/25 09:05 Oxygen Delivery Room Air 04/29/25 09:05 Temperature 36.6 C 04/29/25 09:05 Pulse Rate 96 04/29/25 09:05 Respiratory Rate 16 04/29/25 09:05 Blood Pressure 113/81 04/29/25 09:05 Pulse Oximetry 100 04/29/25 09:05 Oxygen Delivery Room Air 04/29/25 09:05 Imaging Data [facility] [address] [place] [address] [place] [address] XRay Report Signed Patient: ZaidavikaAnahi crockett : 1985 MR#: [id number] Age: 39 Acct:[id number] Loc: [facility] ADM Date: 04/29/[address]: Ordering Physician: Avani Chung APRN Date of Service: 04/29/25 Procedure(s): XR ankle RT min 3V; XR foot RT min 3V Accession Number(s): [id number]; [id number] cc: Ariel, Ela Diallo APRN; Avani Chung APRN~ Examination: XR ankle RT min 3V, XR foot RT min 3V Clinical History: pain to heel x 2 days Comparison: None Technique: 4 views right ankle, 4 views right foot Findings/impression: Right ankle: 1. No fracture or dislocation. Right foot: 1. No acute fracture or dislocation. 2. Calcaneal enthesophyte at insertion site of plantar fascia and Achilles tendon. 3. Degenerative change second toe DIP joint. Reviewed, dictated and finalized at location R. ITY ASSURANCE TECHNICIAN Critical Care Time Critical Care Time Critical Care Time: No Discharge Plan Discharge Clinical Impression: Calcaneal spur Qualifiers: Laterality: right Qualified Code(s): M77.31 - Calcaneal spur, right foot Patient Disposition: Home Condition: Stable Instructions: Antibiotic Form, Plantar Fasciitis (ED), Plantar Fasciitis Exercises (ED) Additional Instructions: Ice to the area 20-30 minutes 4-6 times a day Elevate above heart Elastic wrap or orthopedic splint as directed for comfort for the next 5-7 days Tylenol for lesser pain take prescribed steroid as directed. May take in the morning with food to help decrease side effects. Follow up with your primary care provider if the condition is not improving within 1 week or sooner if the Condition worsens with numbness, tingling, decrease sensation with weakness to seek ER. Patient Language: Telugu Prescriptions: New prednisone 20 mg tablet 40 mg PO DAILY 7 Days Qty: 14 0RF No Action aspirin [Aspir-81] .ROUTE metoprolol succinate 25 mg tablet extended release 24 hr 25 mg PO DAILY omeprazole 20 mg capsule,delayed release(DR/EC) See Rx Instructions .ROUTE .COMPLEX Qty: 60 11RF Dose Instruction: TAKE 1 CAPSULE BY MOUTH TWICE DAILY Rx Instructions: TAKE 1 CAPSULE BY MOUTH TWICE DAILY Follow-up/Referrals: Ariel,Ela Diallo APRN [Primary Care Provider, Unknown] Time of Disposition: 09:51
[2025-04-29 09:05] VITALS: BP 113/81; PULSE 96; RESP 16; TEMP 36.6; O2SAT 100
== END 2025-04-29 09:55 | disposition home or self-care (01) ==
PROVIDERS: Emergency Provider Nurse Practitioner Family; PCP Nurse Practitioner Family
DX: M77.31 Calcaneal spur, right foot (principal); G35.D Multiple sclerosis, unspecified; Z79.82 Long term (current) use of aspirin
CPT/HCPCS: 73610; 73630; 99213; G0463